=== PATIENT | male | born 1960 | race Caucasian/White ===

== ENCOUNTER 2017-01-08 14:36 | Observation (INO) | payer OTHER ==
[~2017-01-08] VITALS: Ht 188 cm; Wt 90.3 kg
[2017-01-08 15:15] LABS: Basophils # (auto) 0 uL; Basophils % (auto) 0.6 % (0.0-2.0); CONDITION Y; Eosinophils # (auto) 0.1 uL; Eosinophils % (auto) 1.5 % (0.0-7.0); Hematocrit 41.8 % (41.0-53.0); Hemoglobin 14.3 g/dL (13.5-17.5); Lymphocytes # (auto) 1.3 uL; Lymphocytes % (auto) 27.6 % (10.0-50.0); Mean Corpuscular Hemoglobin 31.7 pg (28.0-32.0); Mean Corpuscular Hgb Conc. 34.3 g/dL (32.0-36.0); Mean Corpuscular Volume 92.6 fL (80.0-100.0); Mean Platelet Volume 9.2 fL (7.4-10.4); Monocytes # (auto) 0.4 uL; Monocytes % (auto) 8.5 % (0.0-12.0); Neutrophils # (auto) 2.8 uL; Neutrophils % (auto) 61.8 % (37.0-80.0); Platelet Count (auto) 231 10^3/uL (140-450); Red Cell Distribution Width 13.4 % (11.6-16.0); White Blood Cell 4.5 10^3/uL (4.4-10.8)
[2017-01-08 15:34] LABS: Anion Gap 9 (5-15); Calcium 8.4 mg/dL (8.5-10.1); Carbon Dioxide 24 mmol/L (21-32); Chloride 111 mmol/L (98-107); Magnesium 2.6 mg/dL (1.6-2.6); Potassium 4.5 mmol/L (3.5-5.1); Sodium 144 mmol/L (136-145)
[2017-01-08 15:41] LABS: Alkaline Phosphatase 62 U/L (45-117); Aspartate Aminotransferase 24 U/L (15-37); BUN/Creatinine Ratio 22.7; Bilirubin, Total 0.3 mg/dL (0.2-1.0); Blood Urea Nitrogen 25 mg/dL (7-18); GFR African American 90 mL/min; GFR Non-African American 74 mL/min; Glucose 83 mg/dL (74-106); Total Protein 7.3 g/dL (6.4-8.2)
[2017-01-08 23:08] VITALS: BP 129/87
[2017-01-08] MEDS ORDERED: ASPirin 81 mg TAB PO ONE (23:15)
[2017-01-08 23:37] LABS: INR 1.01 (0.9-1.15); Partial Thromboplastin Time 25.8 sec (22.64-33.71)
[2017-01-08 23:44] LABS: B-Type Natriuretic Peptide 1.98 pg/mL (0-100)
[2017-01-08 23:51] LABS: Temperature: 22.9 C (20.0-25.0)
[2017-01-09] MEDS ORDERED: SODIUM CHLORIDE 0.9% 1,000 ML IV SCH (00:04)
[2017-01-09] MEDS ORDERED: ONDANSETRON HCL 4 MG/2 ML VIAL IV PRN (00:15)
[2017-01-09] MEDS ORDERED: TEMAZEPAM 15 MG CAP PO PRN (00:15)
[2017-01-09] MEDS ORDERED: ACETAMINOPHEN 500 MG TAB PO PRN (00:15)
[2017-01-09] MEDS ORDERED: MORPHINE SULF INJ 2 MG/ML SYRINGE 1ML IV PRN ×2 (00:15)
[2017-01-09] MEDS ORDERED: LACTULOSE 20Gm/30ML SOLN PO PRN (00:15)
[2017-01-09] MEDS ORDERED: LORazepam 0.5 MG TAB PO PRN (00:15)
[2017-01-09] MEDS ORDERED: HYDROcodone-ACET 5/325MG TAB PO PRN (00:15)
[2017-01-09] MEDS ORDERED: NITROGLYCERIN 0.4 MG SL TAB SL PRN (00:15)
[2017-01-09 01:26] LABS: Cholesterol 201 mg/dL (< 200); HDL Cholesterol 55 mg/dL (40-59); LDL Cholesterol 121 mg/dL (< 100); Triglycerides 156 mg/dL (< 150)
[2017-01-09] MEDS ORDERED: PANTOPRAZOLE 40 MG TAB PO SCH (10:00)
[2017-01-09] MEDS ORDERED: ASPirin 81 mg TAB PO SCH (10:00)
[2017-01-09] MEDS ORDERED: ATORVASTATIN 20 MG TAB PO SCH (22:00)
== END 2017-01-09 01:04 | disposition home or self-care (01) | DRG 313 ==
LOC: ER 14:36 → EDBD 14:36 → OVERFLOW 23:08 → ER 01-09 00:45
PROVIDERS: ADMIT Family Medicine; ATTEND Family Medicine
DX: R07.89 Other chest pain (principal); Z82.49 Family history of ischemic heart disease and other diseases of the circulatory system; Z98.890 Other specified postprocedural states
CPT/HCPCS: 36415; 71020; 80053; 80061; 82550; 83735; 83880; 84443; 84484; 85025; 85379; 85610; 85730; 86141; 93005; 99285; G0378